=== PATIENT | male | born 1925 | race Caucasian/White ===

== ENCOUNTER 2016-11-06 13:04 | Inpatient (IN) | payer BC, OTHER ==
[~2016-11-06] VITALS: Ht 182.9 cm; Wt 62.0 kg
[~2016-11-06 13:04] MED LIST: ASPI81TA28 PO; ATOR-22 PO; BIMA0.01 OPL; BRIM0.1S OPB; CALC-20 PO; DRON400T PO; WARF2.5T8 PO; WARF5TAB90 PO; ZOLE5INJ IV
[2016-11-06] MEDS ORDERED: OXYCODONE HCL IR 5 MG TAB (IMMEDIATE RELEASE) PO STA (13:48)
--- NOTE | 2016-11-06 15:02 | DIAGNOSTIC IMAGING REPORT ---
LEFT HIP 2 VIEWS HISTORY: Left hip pain. COMPARISON: None. FINDINGS: There is no fracture or dislocation. Soft tissues are unremarkable. Posterior spinal fusion within the lower lumbar spine. Mild degenerative changes within the hips and bilateral SI joints. IMPRESSION: No fractures. Electronically signed by: Sacha Josue M.D. 11/06/2016 3:01 PM Dictated Date/Time: 11/06/2016 2:57 PM
--- NOTE | 2016-11-06 15:55 | DIAGNOSTIC IMAGING REPORT ---
LUMBAR SPINE 5 VIEWS HISTORY: lower back pain COMPARISON: None. FINDINGS: Moderate anterior wedge-shaped compression deformity at T11 and a mild superior endplate compression deformity at T12 which are stable and considered old in comparison to the 2013 chest x-ray. No subluxation. Posterior decompression fusion from L4 through S1 with pedicle screws and rods. The hardware appears intact. 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 No acute fractures within the lumbar spine. IMPRESSION: 1. No acute fracture or subluxation within the lumbar spine. Postoperative changes as described above. 2. Old compression deformity at T11 and T12. Electronically signed by: Sacha Josue M.D. 11/06/2016 3:54 PM Dictated Date/Time: 11/06/2016 3:51 PM
[2016-11-06] MEDS ORDERED: ONDANSETRON INJ 2 MG/ML 2 ML VIAL IV STA (16:09)
[2016-11-06] MEDS ORDERED: MoRPHine SULFATE 4 MG/ML 1 ML CARP\\VIAL IV STA (16:09)
--- NOTE | 2016-11-06 16:09 | EMERGENCY ROOM VISIT NOTE ---
History Report prepared by Donal: Robert Cook Under the Supervision of: Delmer McgheeO. First contact with patient: 13:26 Chief Complaint: HIP PAIN Stated Complaint: LT HIP PAIN History of Present Illness The patient is an 89 year old male who presents to the Emergency Room with complaints of persistent left hip pain that started around 0900 this morning after a fall. He says that he was starting to put a harness on his cat, when he slipped and fell. The patient notes that he hit his left hip on the floor. He did not hit his neck or head on the fall. Per the nursing staff, the patient after the fall walked to the kitchen to have breakfast. The patient called his son a few times, before deciding to come here. The patient said that the pain has gotten gradually worse throughout the day, and is currently a 2 out of 10 in severity. He denies any headache, abdominal pain, back pain, or changes in vision. Source of History: patient, nursing staff Onset: Around 0900 this morning Position: other (left hip) Symptom Intensity: 2/10 pain Timing: other (persistent) Associated Symptoms: No abdominal pain, No back pain, No headache Note: Associated symptoms: Denies changes in vision. Review of Systems See HPI for pertinent positives & negatives. A total of 10 systems reviewed and were otherwise negative. Past Medical & Surgical Medical Problems: (1) ANTICOAGULANTS,LT,CURRENT USE (2) ATRIAL FIBRILLATION (3) CARDIAC PACEMAKER IN SITU (4) Dementia (5) HTN (hypertension) (6) METHICILLIN SUSCEPTIBLE STAPHYLOCOCCUS AUREUS SEPTICEMIA Family History FH: arthritis FH: heart disease Social History Smoking Status: Never Smoker Alcohol Use: occasionally Drug Use: none Marital Status: Housing Status: lives with family Occupation Status: retired Current/Historical Medications Scheduled Aspirin (Aspirin Ec), 81 MG PO DAILY Atorvastatin (Lipitor), 20 MG PO DAILY Bimatoprost (Lumigan), 1 DROP OP DAILY Brimonidine Tartrate (Alphagan P Oph), 1 DROP OP DAILY Calcium Carbonate-Vitamin D (Calcium 600 + D), 1 TABLET PO BID Dronedarone Hcl (Multaq), 400 MG PO BID Warfarin Sod (Jantoven), 2.5 MG PO DIRECTED Warfarin Sodium (Coumadin), 5 MG PO UD Zoledronic Acid (Reclast), 5 MG IV YEARLY Allergies Coded Allergies: Quinolones (Verified Allergy, Unknown, PER MD, 09/10/15) Sulfamethoxazole (Verified Allergy, Unknown, 09/10/15) Tetracyclines (Verified Allergy, Unknown, 09/10/15) Physical Exam Vital Signs Date Time Temp Pulse Resp B/P Pulse Ox O2 Delivery O2 Flow Rate FiO2 11/06/16 14:53 54 20 153/68 95 Room Air 11/06/16 13:26 36.7 57 18 142/72 96 Room Air 11/06/16 13:19 51 Physical Exam GENERAL: sitting up in bed, malnourished, no acute distress, nontoxic EYE EXAM: normal conjunctiva OROPHARYNX: no exudate, no erythema, lips, buccal mucosa, and tongue normal and mucous membranes are moist NECK: supple, no nuchal rigidity, no adenopathy, non-tender LUNGS: Clear to auscultation. Normal chest wall mechanics HEART: no murmurs, S1 normal and S2 normal ABDOMEN: abdomen soft, non-tender, normo-active bowel sounds, no masses, no rebound or guarding. BACK: Back is symmetrical on inspection and there is no deformity, no midline tenderness, no CVA tenderness. PELVIS: Stable to compression anteriorly and posteriorly. Tenderness to palpation on posterior aspect, no bruising. SKIN: no rashes and no bruising UPPER EXTREMITIES: upper extremities are grossly normal. LOWER EXTREMITIES: No pitting edema. NEURO EXAM: Normal sensorium, cranial nerves II-XII grossly intact, no gross weakness of arms. Medical Decision & Procedures ER Provider Diagnostic Interpretation: Radiology results as stated below per my review and the radiologist's interpretation: LEFT HIP 2 VIEWS HISTORY: Left hip pain. COMPARISON: None. FINDINGS: There is no fracture or dislocation. Soft tissues are unremarkable. Posterior spinal fusion within the lower lumbar spine. Mild degenerative changes within the hips and bilateral SI joints. IMPRESSION: No fractures. Electronically signed by: Sacha Josue M.D. 11/06/2016 3:01 PM Dictated Date/Time: 11/06/2016 2:57 PM Laboratory Results Test 11/06/16 15:51 Medications Administered Medications (Trade) Dose Ordered Sig/Lee Route Start Time Stop Time Status Last Admin Dose Admin Oxycodone HCl (Roxicodone Immediate Rel Tab) 5 mg NOW STAT PO 11/06/16 13:48 11/06/16 13:49 DC 11/06/16 13:54 5 MG ED Course ED COURSE: Vital signs were reviewed and showed bradycardic vitals. The patients medical record was reviewed The above diagnostic studies were performed and reviewed. ED treatments and interventions as stated above. 1328: The patient was evaluated in room A11B. A complete history and physical examination was performed. 1348: Ordered Roxicodone Immediate Rel Tab 5 mg PO. 1440: The patient is over at x-ray. 1505: I reevaluated the patient and he is still having pain. We are going to have him get a lumbar spine x-ray. 1540: Attempted to the patient but he was unable to walk due to pain. Sent for CT of the lumbar spine, pelvis and left femur. Labwork was obtained. 1610: Patient was signed out to Dr. Goff. Medical Decision Prior records reviewed and summarized above. Triage Nursing notes reviewed and agree them. Differential diagnosis: Etiologies such as fracture, dislocation, neurovascular compromise, compartment syndrome, soft tissue injury, as well as others were entertained. Patient is an 89-year-old gentleman who lives at home alone by himself who presents the ER for left hip pain following a fall at 9 this morning. He has been ambulating on it since that thepain has been significant worsening. X- rays of the lumbar spine pelvis and left hip show no acute fractures. Attempted to ambulate him following this and was unsuccessful. CBC along with BMP, LFTs and INR was ordered at this time along with a CT of his lumbar spine pelvis and left hip. I had a prolonged discussion with the patient and his son and he'll return at [address] Goff awaiting lab work and CTs. If he is unable to ambulate he will likely need to evaluated by care management for possible placement versus observation. Impression Primary Impression: Contusion, hip Scribe Attestation The scribe's documentation has been prepared under my direction and personally reviewed by me in its entirety. I confirm that the note above accurately reflects all work, treatment, procedures, and medical decision making performed by me. Departure Information Dispostion Home / Self-Care Referrals Kwaku Lara M.D. (PCP) Forms HOME CARE DOCUMENTATION FORM, IMPORTANT VISIT INFORMATION, WORK / SCHOOL INSTRUCTIONS Patient Instructions ED Contusion Hip, My [facility] Additional Instructions Please follow up with your primary care doctor with in the next 24 hours. Any worsening of your symptoms, please return to the ED immediately. This includes fevers greater than 100.4, worsening pain, inability to walk, or any other concerning signs or symptoms from your standpoint. Please take Motrin or Tylenol as needed for pain. Problem Qualifiers Primary Impression: Contusion, hip Encounter type: initial encounter Laterality: left Qualified Codes: S70.02XA - Contusion of left hip, initial encounter
--- NOTE | 2016-11-06 16:40 | DIAGNOSTIC IMAGING REPORT ---
LUMBAR SPINE CT, PELVIS CT, LEFT FEMUR CT CT DOSE: 2160.76 mGy.cm HISTORY: lower back pain sp fall TECHNIQUE: Multiaxial CT images of the lumbar spine, pelvis, left femur were performed and reformatted in the sagittal and coronal plane without the use of contrast. COMPARISON: Lumbar spine, pelvis, left hip 11/06/2016. FINDINGS: Old mild superior endplate compression fracture at T12. L4-S1 posterior decompression and fusion with pedicle screws and rods. The hardware appears intact. There is 4 mm of anterolisthesis of L4 on L5, likely chronic. The L4-L5 vertebral bodies are partially fused. Moderate to severe disc space narrowing at L3-L4. Severe disc space narrowing at L1-L2 and L2-L3. Severe bilateral neural foraminal narrowing at L3-L4. Moderate bilateral neural foraminal narrowing at L4-L5. There is also mild to moderate bilateral neural foraminal narrowing at L2-L3 and severe bilateral neural foraminal narrowing at L1-L2. Mild S-shaped scoliosis of the thoracolumbar spine. Mild central canal narrowing at L1-L2 and L2-L3. No acute fractures within the lumbar spine. The sacrum appears intact. No fracture or dislocation within the right hip. Nondisplaced fractures involving the left inferior pubic ramus and medial aspect of the left pubic bones. There are also nondisplaced fractures involving the lateral aspect of the left superior pubic ramus and extending into the anterior column of the left acetabulum. This also extends to the posterior column of the left acetabulum. Thickening and increased density within the left internal and external obturator muscles. These are consistent with intramuscular hematomas. There is also a hematoma along the medial aspect of the left acetabulum which measures 2.6 cm in thickness. Colonic diverticulosis. The prostate gland is enlarged. No acute fracture or dislocation within the left femur. IMPRESSION: 1. No acute fractures within the lumbar spine. 2. Postoperative and degenerative changes within the lumbar spine as described above. 3. Nondisplaced fractures within the left acetabulum and left pubic bones. 4. No acute fractures within the left femur. 5. Small intramuscular hematomas within the left pelvis and a small pelvic hematoma medial to the left acetabulum. Electronically signed by: Sacha Josue M.D. 11/06/2016 4:38 PM Dictated Date/Time: 11/06/2016 4:24 PM
[2016-11-06 16:56] LABS: COMPLETE YES; EOS % 0.1 %; HEMATOCRIT 43.6 % (42-52); IG% 0.2 %; LYMPH ABS # 0.55 K/uL (1.2-3.4); MEAN CELL VOLUME 92.8 fL (80-100); MEAN CORPUSCULAR HEMOGLOBIN 32.6 pg (25-34); MEAN CORPUSCULAR HGB CONC 35.1 g/dl (32-36); MEAN PLATELET VOLUME 10.8 fL (7.4-10.4); NEUT % 83.7 %; PLATELET COUNT 165 K/uL (130-400); WHITE BLOOD COUNT 9.22 K/uL (4.8-10.8)
[2016-11-06 17:11] LABS: BUN/CREATININE RATIO 17.4 (10-20); CALCIUM 9.1 mg/dl (8.5-10.1); CREATININE 1.4 mg/dl (0.60-1.40); POTASSIUM 3.8 mmol/L (3.5-5.1)
[2016-11-06 17:14] LABS: PROTHROMBIN TIME (PATIENT) 40.4 SECONDS (9.0-12.0)
[2016-11-06 17:18] LABS: INR 3.6 (0.9-1.1)
--- NOTE | 2016-11-06 17:19 | EMERGENCY ROOM VISIT NOTE ---
ED Visit Note First contact with patient: 17:05 This is a 89-year-old male. History physical verified by me. Patient is awaiting CAT scan results. Patient has a acetabular fracture that is nondisplaced and in addition also has a pubic rami fracture. I did discuss the case with Dr. Seymour who asked that the patient be made nonweightbearing. He also stated that the patient could be kept here. Because of this patient's multiple comorbidities I will consult [facility]. Patient and family were in agreement with the treatment plan. Problem List Medical Problems: (1) ANTICOAGULANTS,LT,CURRENT USE Status: Chronic (2) CARDIAC PACEMAKER IN SITU Status: Resolved (3) Dementia Status: Chronic (4) HTN (hypertension) Status: Chronic (5) METHICILLIN SUSCEPTIBLE STAPHYLOCOCCUS AUREUS SEPTICEMIA Status: Resolved Current/Historical Medications Scheduled Aspirin (Aspirin Ec), 81 MG PO DAILY Atorvastatin (Lipitor), 20 MG PO DAILY Bimatoprost (Lumigan), 1 DROP OP DAILY Brimonidine Tartrate (Alphagan P Oph), 1 DROP OP DAILY Calcium Carbonate-Vitamin D (Calcium 600 + D), 1 TABLET PO BID Dronedarone Hcl (Multaq), 400 MG PO BID Warfarin Sod (Jantoven), 2.5 MG PO DIRECTED Warfarin Sodium (Coumadin), 5 MG PO UD Zoledronic Acid (Reclast), 5 MG IV YEARLY Allergies Coded Allergies: Quinolones (Verified Allergy, Unknown, PER MD, 09/10/15) Sulfamethoxazole (Verified Allergy, Unknown, 09/10/15) Tetracyclines (Verified Allergy, Unknown, 09/10/15) Vital Signs Date Time Temp Pulse Resp B/P Pulse Ox O2 Delivery O2 Flow Rate FiO2 11/06/16 17:00 61 16 146/76 96 Room Air 11/06/16 14:53 54 20 153/68 95 Room Air 11/06/16 13:26 36.7 57 18 142/72 96 Room Air 11/06/16 13:19 51 Laboratory Results 11/06/16 16:45 Red Blood Count 4.70, Mean Corpuscular Volume 92.8, Mean Corpuscular Hemoglobin 32.6, Mean Corpuscular Hemoglobin Concent 35.1, Mean Platelet Volume 10.8, Neutrophils (%) (Auto) 83.7, Lymphocytes (%) (Auto) 6.0, Monocytes (%) (Auto) 10.0, Eosinophils (%) (Auto) 0.1, Basophils (%) (Auto) 0.0, Neutrophils # (Auto ) 7.72, Lymphocytes # (Auto) 0.55, Monocytes # (Auto) 0.92, Eosinophils # (Auto ) 0.01, Basophils # (Auto) 0.00 11/06/16 16:45 Test 11/06/16 16:45 White Blood Count 9.22 K/uL (4.8-10.8) Red Blood Count 4.70 M/uL (4.7-6.1) Hemoglobin 15.3 g/dL (14.0-18.0) Hematocrit 43.6 % (42-52) Mean Corpuscular Volume 92.8 fL (80-100) Mean Corpuscular Hemoglobin 32.6 pg (25-34) Mean Corpuscular Hemoglobin Concent 35.1 g/dl (32-36) Platelet Count 165 K/uL (130-400) Mean Platelet Volume 10.8 fL (7.4-10.4) Neutrophils (%) (Auto) 83.7 % Lymphocytes (%) (Auto) 6.0 % Monocytes (%) (Auto) 10.0 % Eosinophils (%) (Auto) 0.1 % Basophils (%) (Auto) 0.0 % Neutrophils # (Auto) 7.72 K/uL (1.4-6.5) Lymphocytes # (Auto) 0.55 K/uL (1.2-3.4) Monocytes # (Auto) 0.92 K/uL (0.11-0.59) Eosinophils # (Auto) 0.01 K/uL (0-0.5) Basophils # (Auto) 0.00 K/uL (0-0.2) RDW Standard Deviation 45.1 fL (36.4-46.3) RDW Coefficient of Variation 13.3 % (11.5-14.5) Immature Granulocyte % (Auto) 0.2 % Immature Granulocyte # (Auto) 0.02 K/uL (0.00-0.02) Anion Gap 8.0 mmol/L (3-11) Est Creatinine Clear Calc Drug Dose 31.4 ml/min Estimated GFR () 51.3 Estimated GFR (Non- 44.2 BUN/Creatinine Ratio 17.4 (10-20) Calcium Level 9.1 mg/dl (8.5-10.1) Total Bilirubin 1.3 mg/dl (0.2-1) Direct Bilirubin 0.3 mg/dl (0-0.2) Aspartate Amino Transf (AST/SGOT) 24 U/L (15-37) Alanine Aminotransferase (ALT/SGPT) 33 U/L (12-78) Alkaline Phosphatase 83 U/L (45-117) Total Protein 7.8 gm/dl (6.4-8.2) Albumin 4.0 gm/dl (3.4-5.0) Medications Administered Medications (Trade) Dose Ordered Sig/Lee Route Start Time Stop Time Status Last Admin Dose Admin Oxycodone HCl (Roxicodone Immediate Rel Tab) 5 mg NOW STAT PO 11/06/16 13:48 11/06/16 13:49 DC 11/06/16 13:54 5 MG Morphine Sulfate (MoRPHine SULFATE INJ) 4 mg NOW STAT IV 11/06/16 16:09 11/06/16 16:10 DC 11/06/16 17:06 4 MG Ondansetron HCl (Zofran Inj) 4 mg NOW STAT IV 11/06/16 16:09 11/06/16 16:10 DC 11/06/16 17:06 4 MG Departure Information Impression Primary Impression: Contusion, hip Dispostion Home / Self-Care Condition GOOD Referrals Kwaku Lara M.D. Forms WORK / SCHOOL INSTRUCTIONS, HOME CARE DOCUMENTATION FORM, IMPORTANT VISIT INFORMATION Patient Instructions [facility], ED Contusion Hip Additional Instructions Please follow up with your primary care doctor with in the next 24 hours. Any worsening of your symptoms, please return to the ED immediately. This includes fevers greater than 100.4, worsening pain, inability to walk, or any other concerning signs or symptoms from your standpoint. Please take Motrin or Tylenol as needed for pain.
[2016-11-06] MEDS ORDERED: ACETAMINOPHEN 325 MG TAB PO PRN (17:45)
[2016-11-06] MEDS ORDERED: POLYETHYLENE (MIRALAX) 17 GM PACK PO PRN (17:45)
[2016-11-06] MEDS ORDERED: OXYCODONE HCL IR 5 MG TAB (IMMEDIATE RELEASE) PO PRN (17:45)
[2016-11-06] MEDS ORDERED: NALOXONE HCL 0.4 MG/1 ML VIAL/CARP IV PRN (17:45)
[2016-11-06] MEDS ORDERED: BISACODYL 10 MG SUPP PR PRN (17:45)
[2016-11-06 18:25] VITALS: O2SAT 96; Ht 182.9 cm; Wt 62.0 kg
[2016-11-06 18:45] VITALS: BP 158/74; PULSE 65; TEMP 37.3; O2SAT 93
[2016-11-06] MEDS ORDERED: PNEUMOCOCCAL ADMINISTRATION CHARGE ONE (19:00)
[2016-11-06] MEDS ORDERED: PNEUMOCOCCAL POLYSACCHARIDES 25 MCG/0.5 ML VIAL/SYR IM. ONE (19:00)
--- NOTE | 2016-11-06 19:03 | History and Physical ---
History & Physical Date & Time of Service: November 06, 2016 at 18:40 Chief Complaint: Lt Hip Pain Primary Care Physician: Edy Cabrera MD History of Present Illness Source: patient, family, clinic records 89 yo M with afib on coumadin presents after a fall at home with persistent pain with ambulation as the day went on. He fell after trying to put a harness of some type on his cat this morning. He denies falls in the past. He reports otherwise feeling well. He lives alone in a townhouse and states that he is usually very active. He walks up and down stairs in his townhouse without any issues. He denies any chest pain, shortness of breath or other issues at time or in the recent past. I spoke with his son who states that his dad has not been complaining of anything recently. He reports seeing him every other day on average and does help him with his pills. He does report some issues with memory loss and repeating things that may have been already said. During my interview with the patient his story went off track many times onto tangents, but he was easily reoriented. He did report some pain in his L hip which he initially attributed to the fall this morning, however, a short time later he couldn't remember why he was here and thought his pain was related to chronic back pain. His son corroborates difficulties specifically with short-term memory. The patient reports the fall was "like a sit down" and he didn't remember hitting anything very hard that would "deserve this much attention." Meds were reviewed with his son. Past Medical/Surgical History Medical Problems: (1) ANTICOAGULANTS,LT,CURRENT USE Status: Chronic (2) Atrial fibrillation Status: Chronic (3) CAD (coronary artery disease) Status: Chronic (4) CARDIAC PACEMAKER IN SITU Status: Resolved (5) Dementia Status: Chronic (6) H/O osteoporotic pathological fracture Permanent Comment: prior vertebral body fracture Status: Chronic (7) HTN (hypertension) Status: Chronic (8) Lumbar spinal stenosis Status: Chronic (9) METHICILLIN SUSCEPTIBLE STAPHYLOCOCCUS AUREUS SEPTICEMIA Status: Resolved (10) BARB (obstructive sleep apnea) Permanent Comment: does not use CPAP at home, although was recommended Status: Chronic (11) Osteoporosis Status: Chronic (12) SSS (sick sinus syndrome) Status: Chronic Family History FH: arthritis FH: heart disease Social History Smoking Status: Never Smoker Smokeless Tobacco Use: No Alcohol Use: socially Drug Use: none Marital Status: Housing status: lives alone Occupational Status: retired Immunizations History of Influenza Vaccine: Yes Influenza Vaccine Date: Mar 04, 2016 History of Tetanus Vaccine?: Yes Tetanus Immunization Date: Mar 18, 2006 History of Pneumococcal: Yes Pneumococcal Date: Aug 28, 2014 History of Hepatitis B Vaccine: No Multi-Drug Resistant Organisms History of MDRO: No Allergies Coded Allergies: Quinolones (Verified Allergy, Unknown, PER MD, 09/10/15) Sulfamethoxazole (Verified Allergy, Unknown, 09/10/15) Tetracyclines (Verified Allergy, Unknown, 09/10/15) Home Medications Scheduled Aspirin (Aspirin Ec), 81 MG PO DAILY Atorvastatin (Lipitor), 20 MG PO DAILY Bimatoprost (Lumigan), 1 DROP OPL DAILY Brimonidine Tartrate (Alphagan P Oph), 1 DROP OPB HS Calcium Carbonate-Vitamin D (Calcium 600 + D), 1 TABLET PO BID Dronedarone Hcl (Multaq), 400 MG PO BID Warfarin Sod (Jantoven), 2.5 MG PO DIRECTED Warfarin Sodium (Coumadin), 5 MG PO UD Zoledronic Acid (Reclast), 5 MG IV YEARLY Review of Systems Constitutional: No chills, No fever Eyes: No worsening of vision ENT: No trouble swallowing Respiratory: No cough, No dyspnea on exertion, No shortness of breath Cardiovascular: No chest pain Abdomen: No constipation, No diarrhea, No nausea, No pain, No vomiting Musculoskeletal: No problem reported Neurologic: + memory loss, No balance problems Psychiatric: No insomnia Hematologic / Lymphatic: No abnormal bleeding/bruising Integumentary: No bleeding, No new/changing skin lesions, No rash Allergic / Immunologic: No food allergies Physical Exam Vital Signs Date Time Temp Pulse Resp B/P Pulse Ox O2 Delivery O2 Flow Rate FiO2 11/06/16 18:00 67 16 154/70 96 Room Air 11/06/16 17:46 68 11/06/16 17:00 61 16 146/76 96 Room Air 11/06/16 14:53 54 20 153/68 95 Room Air 11/06/16 13:26 36.7 57 18 142/72 96 Room Air 11/06/16 13:19 51 GEN: thin, elderly and frail, in no acute distress, alert and appropriate HEENT: NC/AT, PERRL, normal sclerae, opacity to lens of L eye noted, normal conjunctivae CARDIO: reg rate, S1/2 heard without m/g/r LUNGS: CTA bilaterally, no crackles, rales or wheezes, good diaphragmatic excursion ABD: soft, non-tender, non-distended, no rebound or guarding, +BS EXTREMITY: RP and DP palpable 2+ bilat, no LE swelling or edema, extremities are warm and well-perfused, moves legs easily NEURO: CN 2-12 grossly intact, sensation intact throughout, limited exam 2/2 pain and recent fracture MUSC: 5/5 strength throughout, no focal deficits but limited exam 2/2 pain and recent fracture. SKIN: warm and dry, no bruising or abrasions noted to L hip area. Diagnostics Laboratory Results Results Past 24 Hours Test 11/06/16 16:45 Range/Units White Blood Count 9.22 4.8-10.8 K/uL Red Blood Count 4.70 4.7-6.1 M/uL Hemoglobin 15.3 14.0-18.0 g/dL Hematocrit 43.6 42-52 % Mean Corpuscular Volume 92.8 80-100 fL Mean Corpuscular Hemoglobin 32.6 25-34 pg Mean Corpuscular Hemoglobin Concent 35.1 32-36 g/dl Platelet Count 165 130-400 K/uL Mean Platelet Volume 10.8 7.4-10.4 fL Neutrophils (%) (Auto) 83.7 % Lymphocytes (%) (Auto) 6.0 % Monocytes (%) (Auto) 10.0 % Eosinophils (%) (Auto) 0.1 % Basophils (%) (Auto) 0.0 % Neutrophils # (Auto) 7.72 1.4-6.5 K/uL Lymphocytes # (Auto) 0.55 1.2-3.4 K/uL Monocytes # (Auto) 0.92 0.11-0.59 K/uL Eosinophils # (Auto) 0.01 0-0.5 K/uL Basophils # (Auto) 0.00 0-0.2 K/uL RDW Standard Deviation 45.1 36.4-46.3 fL RDW Coefficient of Variation 13.3 11.5-14.5 % Immature Granulocyte % (Auto) 0.2 % Immature Granulocyte # (Auto) 0.02 0.00-0.02 K/uL Prothrombin Time 40.4 9.0-12.0 SECONDS Prothromb Time International Ratio 3.6 0.9-1.1 Sodium Level 140 136-145 mmol/L Potassium Level 3.8 3.5-5.1 mmol/L Chloride Level 105 98-107 mmol/L Carbon Dioxide Level 27 21-32 mmol/L Anion Gap 8.0 3-11 mmol/L Blood Urea Nitrogen 24 7-18 mg/dl Creatinine 1.40 0.60-1.40 mg/dl Est Creatinine Clear Calc Drug Dose 31.4 ml/min Estimated GFR () 51.3 Estimated GFR (Non- 44.2 BUN/Creatinine Ratio 17.4 10-20 Random Glucose 95 70-99 mg/dl Calcium Level 9.1 8.5-10.1 mg/dl Total Bilirubin 1.3 0.2-1 mg/dl Direct Bilirubin 0.3 0-0.2 mg/dl Aspartate Amino Transf (AST/SGOT) 24 15-37 U/L Alanine Aminotransferase (ALT/SGPT) 33 12-78 U/L Alkaline Phosphatase 83 45-117 U/L Total Protein 7.8 6.4-8.2 gm/dl Albumin 4.0 3.4-5.0 gm/dl Diagnostic Radiology LUMBAR SPINE CT, PELVIS CT, LEFT FEMUR CT CT DOSE: 2160.76 mGy.cm HISTORY: lower back pain sp fall TECHNIQUE: Multiaxial CT images of the lumbar spine, pelvis, left femur were performed and reformatted in the sagittal and coronal plane without the use of contrast. COMPARISON: Lumbar spine, pelvis, left hip 11/06/2016. FINDINGS: Old mild superior endplate compression fracture at T12. L4-S1 posterior decompression and fusion with pedicle screws and rods. The hardware appears intact. There is 4 mm of anterolisthesis of L4 on L5, likely chronic. The L4-L5 vertebral bodies are partially fused. Moderate to severe disc space narrowing at L3-L4. Severe disc space narrowing at L1-L2 and L2-L3. Severe bilateral neural foraminal narrowing at L3-L4. Moderate bilateral neural foraminal narrowing at L4-L5. There is also mild to moderate bilateral neural foraminal narrowing at L2-L3 and severe bilateral neural foraminal narrowing at L1-L2. Mild S-shaped scoliosis of the thoracolumbar spine. Mild central canal narrowing at L1-L2 and L2-L3. No acute fractures within the lumbar spine. The sacrum appears intact. No fracture or dislocation within the right hip. Nondisplaced fractures involving the left inferior pubic ramus and medial aspect of the left pubic bones. There are also nondisplaced fractures involving the lateral aspect of the left superior pubic ramus and extending into the anterior column of the left acetabulum. This also extends to the posterior column of the left acetabulum. Thickening and increased density within the left internal and external obturator muscles. These are consistent with intramuscular hematomas. There is also a hematoma along the medial aspect of the left acetabulum which measures 2.6 cm in thickness. Colonic diverticulosis. The prostate gland is enlarged. No acute fracture or dislocation within the left femur. IMPRESSION: 1. No acute fractures within the lumbar spine. 2. Postoperative and degenerative changes within the lumbar spine as described above. 3. Nondisplaced fractures within the left acetabulum and left pubic bones. 4. No acute fractures within the left femur. 5. Small intramuscular hematomas within the left pelvis and a small pelvic hematoma medial to the left acetabulum. LUMBAR SPINE 5 VIEWS HISTORY: lower back pain COMPARISON: None. FINDINGS: Moderate anterior wedge-shaped compression deformity at T11 and a mild superior endplate compression deformity at T12 which are stable and considered old in comparison to the 2013 chest x-ray. No subluxation. Posterior decompression fusion from L4 through S1 with pedicle screws and rods. The hardware appears intact. 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 No acute fractures within the lumbar spine. IMPRESSION: 1. No acute fracture or subluxation within the lumbar spine. Postoperative changes as described above. 2. Old compression deformity at T11 and T12. LEFT HIP 2 VIEWS HISTORY: Left hip pain. COMPARISON: None. FINDINGS: There is no fracture or dislocation. Soft tissues are unremarkable. Posterior spinal fusion within the lower lumbar spine. Mild degenerative changes within the hips and bilateral SI joints. IMPRESSION: No fractures. EKG EKG pending Impression Assessment and Plan 89 yo osteoporotic M with traumatic fall from standing height and subsequent L acetabular and pubic ramus fracture. 1. Mechanical fall-from history, there does not seem to be any other factors at play leading to the fall. He reports being dizzy with bending forward and fell from there into a sitting position on the floor. He denies severe pain at this time but will schedule Tylenol as he has some dementia and short-term memory loss. Not controlling his pain better may lead to hospital delirium-- his son is aware of this. Ortho was consulted and per son does not plan to proceed with surgery, however, at this time I have no formal word from Ortho on that. Will hold warfarin and ASA and keep NPO after midnight in case of surgery in am. Of note, INR will likely need to be reversed if this is the case. Dr. Freeman was consulted for recs. For now, will keep NWB and encourage IS and turn q2h to prevent pressure sores. PT/OT consult placed. 2. Osteoporosis-Reclast infusions yearly with annual dose coming up. Appreciate Ortho weighing in on instructions for this in setting of fracture. 3. CAD s/p stent-denies any symptoms of chest pain or shortness of breath. Appears to be very active at baseline as he accomplishes his ADLs and IADLs and is able to move up and down the stairs in his townhouse. 4. Atrial fibrillation-supratherapeutic on coumadin with rate controlled at baseline. He has a contraindication to beta blockers and does have a pacemaker in place. Cont dronedarone per outpatient regimen DVT prophy: SCDs in setting of poss surgery, coumadin is supratherapeutic and was held on admission. Full Code Dispo-to floor pending formal Ortho evaluation. PT/OT ordered, also. Pt lives alone. Appreciate CM following. Heart Healthy diet DO Kip Hernandez Hospitalist Level of Care Med/Surg Resuscitation Status FULL RESUSCITATION VTE Prophylaxis VTE Risk Assessment Done? Y/N: Yes Risk Level: Moderate Given or contraindicated: Warfarin (Coumadin), SCD's Social Service Consult >80 yr.& Lives Alone
--- NOTE | 2016-11-06 20:16 | DIAGNOSTIC IMAGING REPORT ---
CHEST ONE VIEW PORTABLE HISTORY: pre-op admission COMPARISON: Chest 09/10/2015. FINDINGS: Emphysema. The heart is normal in size. No pleural effusions. No pneumothorax. The right lung is clear. A few linear density left lung base favor subsegmental atelectasis or scarring. IMPRESSION: 1. Emphysema. 2. A few linear densities at the left lung base favor subsegmental atelectasis or scarring. Otherwise, no acute process. Electronically signed by: Sacha Josue M.D. 11/06/2016 8:14 PM Dictated Date/Time: 11/06/2016 8:13 PM
[2016-11-06] MEDS: DOCUSATE SODIUM/SENNA 50/8.6MG TAB PO SCH (22:25)
[2016-11-06] MEDS: ACETAMINOPHEN 500 MG TAB PO SCH (22:25)
[2016-11-06 23:05] VITALS: BP 120/54; PULSE 77; TEMP 37.3; O2SAT 94
[2016-11-07] MEDS: ACETAMINOPHEN 500 MG TAB PO SCH ×3 (06:10→22:10)
[2016-11-07 07:26] LABS: MEAN CORPUSCULAR HEMOGLOBIN 31.7 pg (25-34); MEAN CORPUSCULAR HGB CONC 34.1 g/dl (32-36); MEAN PLATELET VOLUME 10.8 fL (7.4-10.4); PLATELET COUNT 153 K/uL (130-400); RED BLOOD COUNT 4.41 M/uL (4.7-6.1); WHITE BLOOD COUNT 6.71 K/uL (4.8-10.8)
[2016-11-07 07:40] VITALS: BP 89/56; PULSE 85; TEMP 36.5; O2SAT 95
[2016-11-07 07:40] LABS: INR 3.4 (0.9-1.1); PROTHROMBIN TIME (PATIENT) 38.6 SECONDS (9.0-12.0)
[2016-11-07 08:04] LABS: BUN/CREATININE RATIO 18.5 (10-20); CALCIUM 8.5 mg/dl (8.5-10.1); CREATININE 1.5 mg/dl (0.60-1.40)
[2016-11-07 09:42] VITALS: BP 83/52
[2016-11-07] MEDS: SODIUM CHLORIDE 0.9% 1000ML 1,000 ML IV SCH ×2 (12:43→22:10)
--- NOTE | 2016-11-07 13:42 | Medical Consult ---
Consultation Note Date of Service November 07, 2016. Consultation Note I have been asked to provide consultation for reversal of anticoagulation in this 89 year old man with a history of atrial fibrillation and pacemaker insertion. He was in his usual state of health until he experienced a fall at home. Imaging studies performed reveal the presence of nondisplaced fractures within the left acetabulum and left pubic bones and small intramuscular hematomas within the left pelvis and a small pelvic hematoma medial to the left acetabulum. It is unclear as of now as to whether he will require surgical intervention, what type and when. His INR yesterday was 3.6 and this morning it is 3.4 (trending downward). Regardless of the plan, coumadin should be held at least today as he is mildly supratherapeutic. Should surgical intervention be warranted, the favored means of reversing anticoagulation would be IV vitamin K, 5-10 mg. This should result in an INR suitable for surgery within about 6-8 hours. In the event this is insufficient or if reversal needs to be more timely, he would require 1500 units of KCentra, which would reverse the INR immediately, but carries a risk of idiosynchratic thrombosis. Case discussed with Dr. Valle.
--- NOTE | 2016-11-07 15:05 | Progress Note ---
Subjective Date of Service: November 07, 2016. Subjective Pt evaluation today including: conversation w/ patient, physical exam, lab review, review of studies, review of inpatient medication list Saw/examined the patient in room 385 no significant distress - he is laying in bed, HOB elevated, reading a newspaper states his pain is worse at the L hip area; no pain while laying Problem List Medical Problems: (1) Contusion, hip Status: Acute Review of Systems Constitutional: No chills, No fever Respiratory: No shortness of breath Cardiac: No chest pain Abdomen: No diarrhea, No nausea, No pain, No vomiting Musculoskeletal: + joint pain, + see HPI Medications Current Inpatient Medications Medications (Trade) Dose Ordered Sig/Lee Route Start Time Stop Time Status Last Admin Dose Admin Oxycodone HCl (Roxicodone Immediate Rel Tab) 5 mg Q4H PRN PO 11/06/16 17:45 11/20/16 17:44 Naloxone HCl (Narcan Inj) 0.1 mg UD PRN IV 11/06/16 17:45 12/06/16 17:44 Senna/Docusate Sodium (Senokot S Tab) 2 tab HS PO 11/06/16 21:00 12/06/16 20:59 11/06/16 22:25 2 TAB Polyethylene (Miralax Powder Packet) 17 gm DAILY PRN PO 11/06/16 17:45 12/06/16 17:44 Bisacodyl (Dulcolax Supp) 10 mg DAILY PRN ME 11/06/16 17:45 12/06/16 17:44 Acetaminophen 1000 mg 1,000 mg Q8 PO 11/06/16 22:00 12/06/16 21:59 11/07/16 13:37 1,000 MG Sodium Chloride (Nss 1000ml) 1,000 ml @ 100 mls/hr Q10H IV 11/07/16 12:00 12/07/16 11:59 11/07/16 12:43 100 MLS/HR Objective Vital Signs Date Time Temp Pulse Resp B/P Pulse Ox O2 Delivery O2 Flow Rate FiO2 11/07/16 09:42 83/52 11/07/16 08:20 Room Air 11/07/16 07:40 36.5 85 16 89/56 95 Room Air 11/06/16 23:45 Room Air 11/06/16 23:05 37.3 77 16 120/54 94 Room Air 11/06/16 19:00 Room Air 11/06/16 18:45 37.3 65 18 158/74 93 Room Air 11/06/16 18:25 96 Room Air 11/06/16 18:00 67 16 154/70 96 Room Air 11/06/16 17:46 68 11/06/16 17:00 61 16 146/76 96 Room Air 11/06/16 14:53 54 20 153/68 95 Room Air Physical Exam General Appearance: no apparent distress, + cachetic, + thin Respiratory/Chest: lungs clear, normal breath sounds, no respiratory distress, no accessory muscle use Cardiovascular: no edema, no murmur, + irregularly irregular Abdomen: normal bowel sounds, non tender, soft Extremities: + pertinent finding (painful ROM, point tenderness at L hip) Laboratory Results Last 24 Hours Test 11/06/16 16:45 11/07/16 07:12 White Blood Count 9.22 K/uL 6.71 K/uL Red Blood Count 4.70 M/uL 4.41 M/uL Hemoglobin 15.3 g/dL 14.0 g/dL Hematocrit 43.6 % 41.0 % Mean Corpuscular Volume 92.8 fL 93.0 fL Mean Corpuscular Hemoglobin 32.6 pg 31.7 pg Mean Corpuscular Hemoglobin Concent 35.1 g/dl 34.1 g/dl Platelet Count 165 K/uL 153 K/uL Mean Platelet Volume 10.8 fL 10.8 fL Neutrophils (%) (Auto) 83.7 % Lymphocytes (%) (Auto) 6.0 % Monocytes (%) (Auto) 10.0 % Eosinophils (%) (Auto) 0.1 % Basophils (%) (Auto) 0.0 % Neutrophils # (Auto) 7.72 K/uL Lymphocytes # (Auto) 0.55 K/uL Monocytes # (Auto) 0.92 K/uL Eosinophils # (Auto) 0.01 K/uL Basophils # (Auto) 0.00 K/uL RDW Standard Deviation 45.1 fL 45.9 fL RDW Coefficient of Variation 13.3 % 13.4 % Immature Granulocyte % (Auto) 0.2 % Immature Granulocyte # (Auto) 0.02 K/uL Prothrombin Time 40.4 SECONDS 38.6 SECONDS Prothromb Time International Ratio 3.6 3.4 Sodium Level 140 mmol/L 141 mmol/L Potassium Level 3.8 mmol/L 4.0 mmol/L Chloride Level 105 mmol/L 108 mmol/L Carbon Dioxide Level 27 mmol/L 24 mmol/L Anion Gap 8.0 mmol/L 9.0 mmol/L Blood Urea Nitrogen 24 mg/dl 28 mg/dl Creatinine 1.40 mg/dl 1.50 mg/dl Est Creatinine Clear Calc Drug Dose 31.4 ml/min 29.3 ml/min Estimated GFR () 51.3 47.2 Estimated GFR (Non- 44.2 40.7 BUN/Creatinine Ratio 17.4 18.5 Random Glucose 95 mg/dl 83 mg/dl Calcium Level 9.1 mg/dl 8.5 mg/dl Total Bilirubin 1.3 mg/dl Direct Bilirubin 0.3 mg/dl Aspartate Amino Transf (AST/SGOT) 24 U/L Alanine Aminotransferase (ALT/SGPT) 33 U/L Alkaline Phosphatase 83 U/L Total Protein 7.8 gm/dl Albumin 4.0 gm/dl 25-Hydroxy Vitamin D Total 28.9 ng/ml Assessment and Plan This is an 89 year old male with a PMH of CAD s/p stents, A. fib on long-term Coumadin, sick sinus syndrome s/p PPM, osteoporotic vertebral fracture, CKD stage 3, presented secondary to mechanical fall and nondisplaced L acetabular and pelvic bone fractures Nondisplaced L acetabular/pelvic fracture this is likely going to be conservative management only will attempt non-weightbearing status on L as tolerated Percocet PRN for pain will await ortho input prior to therapy, then will order PT/OT lives alone - will need rehab; discharge planning A. Fib on Coumadin currently rate controlled does not tolerate b-blockers as per records continue Multaq INR >3; hold Coumadin will need Vitamin K if surgical intervention planned CAD s/p stents can restart aspirin, statin if no surgical intervention planned Hx. of Osteoporosis Reclast yearly can increase fracture risk, for now, will continue Sick sinus syndrome s/p PPM CKD stage 3 creatinine up to 1.5 will add some fluids avoiding nephrotoxic agents when possible DVT ppx SCDs FULL CODE
[2016-11-07 16:00] VITALS: BP 87/61; PULSE 103; TEMP 36.4; O2SAT 95
--- NOTE | 2016-11-07 19:23 | ORTHOPEDIC CONSULTATION ---
DATE OF CONSULTATION: 11/07/2016 CHIEF COMPLAINT: Left hip pain. HISTORY OF PRESENT ILLNESS: This patient is a mildly confused 89-year-old man who was admitted on the day prior apparently after falling while attempting to take care of his cat. He describes the fall as a sit down type fall, he lost his balance. The patient has discomfort with walking and was admitted for further workup. An orthopedic consult was placed because of the CT scan showing what appears to be a nondisplaced central acetabular fracture and pubic ramus fracture on the left. For medical and surgical history, see admission history and physical, it is extensive. MEDICATIONS: See admitting history and physical. Of note, patient is on low dose Coumadin for a history of pacemaker and chronic atrial fibrillation. ORTHOPEDIC EXAMINATION: The patient is thin and frail in appearance. He is sitting at this time and does not appear to be in any acute distress. Orthopedic examination shows his pelvis to be stable to compression. There is no visible deformity or bruising. Skin is intact. Range of motion of the left hip reproduces some groin and hip discomfort. Otherwise, negative findings. Neurological and vascular functions are intact. IMAGING DATA: Radiographs including pelvis and CT scan were reviewed. These are consistent with a nondisplaced fracture of the left pubic ramus which appears to be a central acetabular fracture with severe osteopenia. IMPRESSION: Left nondisplaced acetabular fracture. PLAN: I do not feel that this patient will need surgical nor is he a good surgical candidate. It is okay to continue his Coumadin. We would recommend nonoperative treatment, ideal would be non-weightbearing for a period of a few weeks and then to advance to toe touch weightbearing. With his mild confusion, this may be difficult. The patient lives alone, I believe that he would be best served at an extended care facility during this period of recovery. We will need x-rays q. 2 weeks for the first 4-6 weeks and then q. 6 weeks after that until the fracture is completely healed. Thank you for this consult.
[2016-11-07] MEDS: DOCUSATE SODIUM/SENNA 50/8.6MG TAB PO SCH (22:11)
[2016-11-07 23:20] VITALS: BP 120/74; PULSE 68; TEMP 36.8; O2SAT 95
[2016-11-08 01:05] VITALS: BP 115/72; PULSE 123
[2016-11-08 01:28] VITALS: BP 129/73; PULSE 94
[2016-11-08] MEDS: ACETAMINOPHEN 500 MG TAB PO SCH ×3 (05:29→21:27)
[2016-11-08 07:08] VITALS: BP 119/73; PULSE 85; TEMP 36.4; O2SAT 94
[2016-11-08 07:14] LABS: HEMATOCRIT 38.1 % (42-52); MEAN CORPUSCULAR HEMOGLOBIN 32.4 pg (25-34); MEAN CORPUSCULAR HGB CONC 35.2 g/dl (32-36); MEAN PLATELET VOLUME 10.7 fL (7.4-10.4); PLATELET COUNT 149 K/uL (130-400); RED BLOOD COUNT 4.14 M/uL (4.7-6.1); WHITE BLOOD COUNT 7.62 K/uL (4.8-10.8)
[2016-11-08] MEDS: SODIUM CHLORIDE 0.9% 1000ML 1,000 ML IV SCH ×2 (07:30→16:54)
[2016-11-08 07:36] LABS: INR 2.7 (0.9-1.1); PROTHROMBIN TIME (PATIENT) 29.7 SECONDS (9.0-12.0)
[2016-11-08 07:45] LABS: BUN/CREATININE RATIO 20.4 (10-20); CALCIUM 8.1 mg/dl (8.5-10.1); CREATININE 1.4 mg/dl (0.60-1.40)
[2016-11-08 15:13] VITALS: BP 161/93; PULSE 107; TEMP 36.3; O2SAT 97
[2016-11-08] MEDS ORDERED: WARFARIN SOD 2.5 MG TAB PO SCH (16:00)
[2016-11-08] MEDS: DOCUSATE SODIUM/SENNA 50/8.6MG TAB PO SCH (21:27)
[2016-11-08 23:15] VITALS: BP 158/84; PULSE 71; TEMP 36.7; O2SAT 96
--- NOTE | 2016-11-09 00:09 | Progress Note ---
Medicine Progress Note Date & Time of Visit: November 08, 2016 at 1500. Subjective This is an 89 year old male s/p mechanical fall with L acetabular and pelvic bone fractures -pain controlled tolerating PO non-weight bearing, up in chair today no CP, SOB or other symptoms at this time Objective Last 8 Hrs Date Time Temp Pulse Resp B/P Pulse Ox O2 Delivery O2 Flow Rate FiO2 11/08/16 15:13 36.3 107 17 161/93 97 Room Air Physical Exam: GEN: thin, elderly and frail, in no acute distress, alert and appropriate HEENT: NC/AT, normal sclerae CARDIO: reg rate, S1/2 heard without m/g/r LUNGS: CTA bilaterally, no crackles, rales or wheezes, good diaphragmatic excursion ABD: soft, non-tender, non-distended, no rebound or guarding, +BS EXTREMITY: RP and DP palpable 2+ bilat, no LE swelling or edema, extremities are warm and well-perfused, moves legs easily N/M: left leg NVI, no gross focal deficits. SKIN: warm and dry, Laboratory Results: 11/08/16 06:35 11/08/16 06:35 Test 11/06/16 16:45 11/07/16 07:12 11/08/16 06:35 Immature Granulocyte % (Auto) 0.2 % White Blood Count 9.22 K/uL (4.8-10.8) Red Blood Count 4.70 M/uL (4.7-6.1) 4.14 M/uL (4.7-6.1) Hemoglobin 15.3 g/dL (14.0-18.0) Hematocrit 43.6 % (42-52) Mean Corpuscular Volume 92.8 fL (80-100) 92.0 fL (80-100) Mean Corpuscular Hemoglobin 32.6 pg (25-34) 32.4 pg (25-34) Mean Corpuscular Hemoglobin Concent 35.1 g/dl (32-36) 35.2 g/dl (32-36) Platelet Count 165 K/uL (130-400) Mean Platelet Volume 10.8 fL (7.4-10.4) 10.7 fL (7.4-10.4) Neutrophils (%) (Auto) 83.7 % Lymphocytes (%) (Auto) 6.0 % Monocytes (%) (Auto) 10.0 % Eosinophils (%) (Auto) 0.1 % Basophils (%) (Auto) 0.0 % Neutrophils # (Auto) 7.72 K/uL (1.4-6.5) Lymphocytes # (Auto) 0.55 K/uL (1.2-3.4) Monocytes # (Auto) 0.92 K/uL (0.11-0.59) Eosinophils # (Auto) 0.01 K/uL (0-0.5) Basophils # (Auto) 0.00 K/uL (0-0.2) Immature Granulocyte # (Auto) 0.02 K/uL (0.00-0.02) Total Bilirubin 1.3 mg/dl (0.2-1) Direct Bilirubin 0.3 mg/dl (0-0.2) Aspartate Amino Transf (AST/SGOT) 24 U/L (15-37) Alanine Aminotransferase (ALT/SGPT) 33 U/L (12-78) Alkaline Phosphatase 83 U/L (45-117) Total Protein 7.8 gm/dl (6.4-8.2) Albumin 4.0 gm/dl (3.4-5.0) 25-Hydroxy Vitamin D Total 28.9 ng/ml (30-100) RDW Standard Deviation 44.4 fL (36.4-46.3) RDW Coefficient of Variation 13.3 % (11.5-14.5) Prothrombin Time 29.7 SECONDS (9.0-12.0) Prothromb Time International Ratio 2.7 (0.9-1.1) Anion Gap 8.0 mmol/L (3-11) Est Creatinine Clear Calc Drug Dose 31.4 ml/min Estimated GFR () 51.3 Estimated GFR (Non- 44.2 BUN/Creatinine Ratio 20.4 (10-20) Calcium Level 8.1 mg/dl (8.5-10.1) Date/Time Source Procedure Growth Status 11/06/16 00:00 Nasal MRSA DNA Surveillance Screen - Final Specimen Negative for MRSA by DNA Probe Complete Last 24 Hours Test 11/08/16 06:35 White Blood Count 7.62 K/uL Red Blood Count 4.14 M/uL Hemoglobin 13.4 g/dL Hematocrit 38.1 % Mean Corpuscular Volume 92.0 fL Mean Corpuscular Hemoglobin 32.4 pg Mean Corpuscular Hemoglobin Concent 35.2 g/dl RDW Standard Deviation 44.4 fL RDW Coefficient of Variation 13.3 % Platelet Count 149 K/uL Mean Platelet Volume 10.7 fL Prothrombin Time 29.7 SECONDS Prothromb Time International Ratio 2.7 Sodium Level 141 mmol/L Potassium Level 4.0 mmol/L Chloride Level 109 mmol/L Carbon Dioxide Level 24 mmol/L Anion Gap 8.0 mmol/L Blood Urea Nitrogen 29 mg/dl Creatinine 1.40 mg/dl Est Creatinine Clear Calc Drug Dose 31.4 ml/min Estimated GFR () 51.3 Estimated GFR (Non- 44.2 BUN/Creatinine Ratio 20.4 Random Glucose 88 mg/dl Calcium Level 8.1 mg/dl Assessment & Plan This is an 89 year old male with a PMH of CAD s/p stents, A. fib on long-term Coumadin, sick sinus syndrome s/p PPM, osteoporotic vertebral fracture, CKD stage 3, presented secondary to mechanical fall and nondisplaced L acetabular and pelvic bone fractures Nondisplaced L acetabular/pelvic fracture: per Ortho, conservative, non- operative management. NWB, Percocet PRN for pain. Lives alone - will need rehab ; discharge planning A. Fib on Coumadin currently rate controlled does not tolerate b-blockers as per records continue Multaq INR 2.7; warfarin restarted, repeat daily INR CAD s/p stents, cont ASA and statin per home regimen Hx. of Osteoporosis Reclast yearly Sick sinus syndrome s/p PPM CKD stage 3-at baseline, avoiding nephrotoxic agents when possible DVT proph: warfarin Dispo-to rehab facility Full Code [facility] Current Inpatient Medications: Current Inpatient Medications Medications (Trade) Dose Ordered Sig/Lee Route Start Time Stop Time Status Last Admin Dose Admin Oxycodone HCl (Roxicodone Immediate Rel Tab) 5 mg Q4H PRN PO 11/06/16 17:45 11/20/16 17:44 Naloxone HCl (Narcan Inj) 0.1 mg UD PRN IV 11/06/16 17:45 12/06/16 17:44 Senna/Docusate Sodium (Senokot S Tab) 2 tab HS PO 11/06/16 21:00 12/06/16 20:59 11/07/16 22:11 2 TAB Polyethylene (Miralax Powder Packet) 17 gm DAILY PRN PO 11/06/16 17:45 12/06/16 17:44 Bisacodyl (Dulcolax Supp) 10 mg DAILY PRN NH 11/06/16 17:45 12/06/16 17:44 Acetaminophen 1000 mg 1,000 mg Q8 PO 11/06/16 22:00 12/06/16 21:59 11/08/16 13:29 1,000 MG Sodium Chloride (Nss 1000ml) 1,000 ml @ 100 mls/hr Q10H IV 11/07/16 12:00 12/07/16 11:59 11/08/16 16:54 100 MLS/HR Warfarin Sodium (Coumadin Tab) 2.5 mg SuTuThSa@1600 PO 11/08/16 16:00 12/08/16 15:59 11/08/16 16:50 2.5 MG Warfarin Sodium (Coumadin Tab) 5 mg MoWeFr@1600 PO 11/09/16 16:00 12/09/16 15:59
[2016-11-09] MEDS: SODIUM CHLORIDE 0.9% 1000ML 1,000 ML IV SCH ×2 (02:37→12:29)
[2016-11-09] MEDS: ACETAMINOPHEN 500 MG TAB PO SCH ×2 (05:44→13:43)
[2016-11-09 07:06] VITALS: BP 159/86; PULSE 64; TEMP 36.3; O2SAT 98
[2016-11-09 07:45] LABS: INR 2.1 (0.9-1.1); PROTHROMBIN TIME (PATIENT) 22.9 SECONDS (9.0-12.0)
[2016-11-09] MEDS ORDERED: ATORVASTATIN 20 MG TAB PO SCH (09:00)
[2016-11-09] MEDS ORDERED: ASPIRIN 81 MG ECTAB PO SCH (09:00)
[2016-11-09] MEDS ORDERED: RXC5 PO (15:32)
--- NOTE | 2016-11-09 15:40 | Discharge Instructions ---
Discharge Instructions Date of Service November 09, 2016. Admission Reason for Admission: Hip Fracture, Left Discharge Discharge Diagnosis / Problem: Left non-displaced acetabular fracture Discharge Goals Goal(s): Decrease discomfort Activity Recommendations Activity Limitations: per Instructions/Follow-up section . Instructions / Follow-Up Instructions / Follow-Up Please continue all medications as directed including coumadin. Orthopedic instructions: Remain non-weight bearing for 2-4 weeks, then advance to toe touch weightbearing. Will need xrays every 2 weeks for the first 4-6 weeks, the every 6 weeks after that until fracture is completely healed. Please contact Dr. Dale Austin's office (Orthopedics) to set up follow-up appointment. I recommend a follow-up with your primary care physician within one week of discharge from the rehab facility as a follow-up from this hospitalization. It was a pleasure taking care of you! Call if you have any questions or problems. You can reach a [facility] hospitalist on duty at [facility] 24 hours a day by calling [phone]. Take care of yourself. Chika Shultz DO [facility] Hospitalist Current Hospital Diet Patient's current hospital diet: AHA Diet (Heart Healthy) Discharge Diet Recommended Diet: AHA Diet (Heart Healthy) Procedures Procedures Performed: None. Pending Studies Studies pending at discharge: no Medical Emergencies . Who to Call and When: Medical Emergencies: If at any time you feel your situation is an emergency, please call 911 immediately. . Non-Emergent Contact Non-Emergency issues call your: Primary Care Provider . . "Provider Documentation" section prepared by Chika Shultz. . VTE Core Measure Inpt VTE Proph given/why not?: Warfarin (Coumadin), SCD's [place] Drug Monitoring Program Search Results: no issues identified (cannot login to database)
--- NOTE | 2016-11-09 15:44 | Discharge Summary ---
Discharge Summary Date of Service November 09, 2016. Discharge Summary Admission Date: November 06, 2016 at 17:43 Discharge Date: November 09, 2016 Discharge Disposition: intermediate facility Principal Diagnosis: L acetabular fracture, nondisplaced Chronic atrial fibrillation on coumadin CAD s/p stents SSS s/p Pacemaker Osteoporotic vertebral compression fracture Osteoporosis-on Reclast infusions CKD III Procedures: None. Vaccinations: None. Consultations: Orthopedics. Pending Studies/Follow-Up: see instructions below. Medication Reconciliation New Medications: Oxycodone HCl (Oxycodone HCl) 5 Mg Tab 5 MG PO Q4H PRN for Pain for 10 Days, #20 TAB Continued Medications: Aspirin (Aspirin Ec) 81 Mg Tab 81 MG PO DAILY Atorvastatin (Lipitor) 20 Mg Tab 20 MG PO DAILY, TAB Bimatoprost (Lumigan) 0.01 % Billie 1 DROP OPL DAILY, #10 Brimonidine Tartrate (Alphagan P Oph) 0.1 % Billie 1 DROP OPB HS Calcium Carbonate-Vitamin D (Calcium 600 + D) 1 Tab Tab 1 TABLET PO BID Dronedarone Hcl (Multaq) 400 Mg Tab 400 MG PO BID Warfarin Sod (Jantoven) 2.5 Mg Tab 2.5 MG PO DIRECTED, TAB TAKE , , MON, MONDAY Warfarin Sodium (Coumadin) 5 Mg Tab 5 MG PO UD, TAB take 5 mg mon, mon, monday Discontinued Medications: Zoledronic Acid (Reclast) 5 Mg/100 Ml Inj 5 MG IV YEARLY Admission Information HPI (per Admitting provider): 89 yo M with afib on coumadin presents after a fall at home with persistent pain with ambulation as the day went on. He fell after trying to put a harness of some type on his cat this morning. He denies falls in the past. He reports otherwise feeling well. He lives alone in a townhouse and states that he is usually very active. He walks up and down stairs in his townhouse without any issues. He denies any chest pain, shortness of breath or other issues at time or in the recent past. I spoke with his son who states that his dad has not been complaining of anything recently. He reports seeing him every other day on average and does help him with his pills. He does report some issues with memory loss and repeating things that may have been already said. During my interview with the patient his story went off track many times onto tangents, but he was easily reoriented. He did report some pain in his L hip which he initially attributed to the fall this morning, however, a short time later he couldn't remember why he was here and thought his pain was related to chronic back pain. His son corroborates difficulties specifically with short-term memory. The patient reports the fall was "like a sit down" and he didn't remember hitting anything very hard that would "deserve this much attention." Meds were reviewed with his son. Physical Exam (per Admitting): GEN: thin, elderly and frail, in no acute distress, alert and appropriate HEENT: NC/AT, PERRL, normal sclerae, opacity to lens of L eye noted, normal conjunctivae CARDIO: reg rate, S1/2 heard without m/g/r LUNGS: CTA bilaterally, no crackles, rales or wheezes, good diaphragmatic excursion ABD: soft, non-tender, non-distended, no rebound or guarding, +BS EXTREMITY: RP and DP palpable 2+ bilat, no LE swelling or edema, extremities are warm and well-perfused, moves legs easily NEURO: CN 2-12 grossly intact, sensation intact throughout, limited exam 2/2 pain and recent fracture MUSC: 5/5 strength throughout, no focal deficits but limited exam 2/2 pain and recent fracture. SKIN: warm and dry, no bruising or abrasions noted to L hip area. Hospital Course This is an 89 year old male with a PMH of CAD s/p stents, A. fib on long-term Coumadin, sick sinus syndrome s/p PPM, osteoporotic vertebral fracture, CKD stage 3, presented secondary to mechanical fall and nondisplaced L acetabular and pelvic bone fractures Nondisplaced L acetabular/pelvic fracture: per Ortho, conservative, non- operative management. NWB, Percocet PRN for pain. Lives alone - will need rehab ; discharge planning A. Fib on Coumadin currently rate controlled does not tolerate b-blockers as per records continue Multaq INR 2.7; warfarin restarted, repeat daily INR CAD s/p stents, cont ASA and statin per home regimen Hx. of Osteoporosis Reclast yearly Sick sinus syndrome s/p PPM CKD stage 3-at baseline, avoiding nephrotoxic agents when possible On day of discharge he was afebrile and hemodynamically stable. Pain was controlled. Plan per Ortho was explained and I also left a message for son via [employer] with name and contact info on discharge instructions. His physical exam was unremarkable and he was sent to SNF is stable condition for several weeks of rehab. Total time spent on discharge = 60 minutes This includes examination of the patient, discharge planning, medication reconciliation, and communication with other providers. Discharge Instructions Discharge Instructions Date of Service November 09, 2016. Admission Reason for Admission: Hip Fracture, Left Discharge Discharge Diagnosis / Problem: Left non-displaced acetabular fracture Discharge Goals Goal(s): Decrease discomfort Activity Recommendations Activity Limitations: per Instructions/Follow-up section . Instructions / Follow-Up Instructions / Follow-Up Please continue all medications as directed including coumadin. Orthopedic instructions: Remain non-weight bearing for 2-4 weeks, then advance to toe touch weightbearing. Will need xrays every 2 weeks for the first 4-6 weeks, the every 6 weeks after that until fracture is completely healed. Please contact Dr. Dale Austin's office (Orthopedics) to set up follow-up appointment. I recommend a follow-up with your primary care physician within one week of discharge from the rehab facility as a follow-up from this hospitalization. It was a pleasure taking care of you! Call if you have any questions or problems. You can reach a [facility] hospitalist on duty at [facility] 24 hours a day by calling [phone]. Take care of yourself. Chika Shultz, [facility] Hospitalist Additional Copies To Markel Austin M.D.; Edy Cabrera MD
[2016-11-09 15:47] VITALS: BP 135/71; PULSE 64; TEMP 36.3; O2SAT 98
[2016-11-09] MEDS ORDERED: WARFARIN SOD 5 MG TAB PO SCH (16:00)
== END 2016-11-09 17:05 | DRG 536 ==
LOC: ENRESERVTM → ENRESERVDT → EDBD 13:04 → C.EDA 13:05 → C.MSN 17:43
PROVIDERS: ADMIT Hospitalist; ATTEND Hospitalist
DX: S32.402A Unspecified fracture of left acetabulum, initial encounter for closed fracture (principal); M80.88XA Other osteoporosis with current pathological fracture, vertebra(e), initial encounter for fracture; I48.2 Chronic atrial fibrillation; F03.90 Unspecified dementia, unspecified severity, without behavioral disturbance, psychotic disturbance, mood disturbance, and anxiety; I25.10 Atherosclerotic heart disease of native coronary artery without angina pectoris; I12.9 Hypertensive chronic kidney disease with stage 1 through stage 4 chronic kidney disease, or unspecified chronic kidney disease; G47.33 Obstructive sleep apnea (adult) (pediatric); N18.3 Chronic kidney disease, stage 3 (moderate); W19.XXXA Unspecified fall, initial encounter; Z79.01 Long term (current) use of anticoagulants; Z95.0 Presence of cardiac pacemaker; Z79.82 Long term (current) use of aspirin

== ENCOUNTER → 2017-04-03 | Outpatient (CLI) | payer BC, OTHER ==
[~2017-04-03] MED LIST changes: +RXC5 PO; -ZOLE5INJ IV
== END | disposition home or self-care (01) ==
LOC: C.MAMM 10:30
PROVIDERS: ATTEND Internal Medicine
DX: M80.80XA Other osteoporosis with current pathological fracture, unspecified site, initial encounter for fracture (principal)

== ENCOUNTER → 2017-04-05 | Outpatient (CLI) | payer BC, OTHER ==
--- NOTE | 2017-04-05 12:39 | DIAGNOSTIC IMAGING REPORT ---
HEAD CT NONCONTRAST CT DOSE: 776.86 mGycm HISTORY: MEMORY LOSS TECHNIQUE: Multiaxial CT images of the head were performed without the use of intravenous contrast. Automated exposure control was utilized for this study. A dose lowering technique was utilized adhering to the principles of ALARA. Comparison: Head CT 12/04/2014. Findings: The paranasal sinuses and mastoid air cells are clear. The calvarium and skull base are intact. There is no hematoma, midline shift, acute infarct. White matter hypodensity is nonspecific but suggestive of microvascular ischemic change. The ventricles and sulci demonstrate mild age-related involutional changes. 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 Impression: No significant change compared to the prior study. No acute intracranial abnormality. Electronically signed by: Sacha Josue M.D. 04/05/2017 12:38 PM Dictated Date/Time: 04/05/2017 12:33 PM
== END | disposition home or self-care (01) ==
LOC: C.CTS 12:17
PROVIDERS: ATTEND Internal Medicine
DX: R41.3 Other amnesia (principal)

== ENCOUNTER 2017-04-24 13:15 | Emergency (ER) | payer BC, OTHER ==
[~2017-04-24] VITALS: Ht 177.8 cm; Wt 65.9 kg
[2017-04-24 13:22] VITALS: TEMP 36.9; Ht 177.8 cm; Wt 65.9 kg
[2017-04-24] MEDS ORDERED: CHOL1000 PO (13:59)
[2017-04-24] MEDS ORDERED: ACET-749 PO (13:59)
[2017-04-24] MEDS ORDERED: POLY335019 PO (13:59)
[2017-04-24 14:12] LABS: INR 1.9 (0.9-1.1); PROTHROMBIN TIME (PATIENT) 20.7 SECONDS (9.0-12.0)
[2017-04-24 14:20] LABS: BASO % 0.2 %; BASO ABS # 0.01 K/uL (0-0.2); COMPLETE YES; EOS % 1.6 %; HEMATOCRIT 38.4 % (42-52); IG% 0.2 %; LYMPH % 16.6 %; LYMPH ABS # 0.92 K/uL (1.2-3.4); MEAN CORPUSCULAR HEMOGLOBIN 31.3 pg (25-34); MEAN CORPUSCULAR HGB CONC 34.4 g/dl (32-36); MEAN PLATELET VOLUME 10.9 fL (7.4-10.4); MONO % 14.3 %; NEUT % 67.1 %; PLATELET COUNT 183 K/uL (130-400); RED BLOOD COUNT 4.22 M/uL (4.7-6.1); WHITE BLOOD COUNT 5.53 K/uL (4.8-10.8)
[2017-04-24 15:40] VITALS: BP 150/78; PULSE 75; O2SAT 97
--- NOTE | 2017-04-24 18:44 | EMERGENCY ROOM VISIT NOTE ---
History Report prepared by Donal: Tashi Bee Under the Supervision of: Dr. Karlo Heaton D.O. First contact with patient: 13:32 Chief Complaint: BLEEDING Stated Complaint: PULLED OUT STITHCES,UNCONTROLLED BLEEDING Nursing Triage Summary: triage note; pt from [facility]. [facility] staff member present with pt reports pt had left lower tooth extracted last monday. since 1200 staff noticed bleeding from extraction site. staff report pt is on coumadin. History of Present Illness The patient is a 89 year old male who presents to the Emergency Room with complaints of uncontrolled bleeding that began 1.5 hours ago. He had a tooth extracted 5 days ago with stitches placed. He is currently on Coumadin. The patient is from [facility], and since this time staff noticed that he was bleeding from his incision site. They tried to call his Dentist, but they did not answer the phone. The patient denies any other symptoms at this time including chest pain, shortness breath, headache, change in vision, nausea, vomiting or diarrhea. Source of History: patient, shelter notes Onset: 1.5 hours ago Position: teeth Symptom Intensity: moderate Quality: other (Bleeding) Timing: constant Note: He denies any other abnormal symptoms. Review of Systems See HPI for pertinent positives & negatives. A total of 10 systems reviewed and were otherwise negative. 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 (12) BARB (obstructive sleep apnea) (13) Osteoporosis (14) SSS (sick sinus syndrome) Family History FH: arthritis FH: heart disease Social History Smoking Status: Never Smoker Alcohol Use: occasionally Drug Use: none Marital Status: Housing Status: lives with family Occupation Status: retired Current/Historical Medications Scheduled Aspirin (Aspirin Ec), 81 MG PO DAILY Atorvastatin (Lipitor), 20 MG PO DAILY Bimatoprost (Lumigan), 1 DROP OPL DAILY Brimonidine Tartrate (Alphagan P Oph), 1 DROP OPB HS Calcium Carbonate-Vitamin D (Calcium 600 + D), 1 TABLET PO BID Cholecalciferol (Vitamin D3), 1,000 UNITS PO DAILY Dronedarone Hcl (Multaq), 400 MG PO BID Polyethylene Glycol 3350 (Miralax), 17 GM PO UD Warfarin Sod (Jantoven), 2.5 MG PO [id number] Warfarin Sodium (Coumadin), 5 MG PO WK Scheduled PRN Acetaminophen/Codeine (Tylenol W/Codeine #3), 1-2 TABS PO Q4 PRN for Pain Allergies Coded Allergies: Quinolones (Verified Allergy, Unknown, PER MD, 04/24/17) Sulfamethoxazole (Verified Allergy, Unknown, 04/24/17) Tetracyclines (Verified Allergy, Unknown, 04/24/17) Physical Exam Vital Signs Date Time Temp Pulse Resp B/P (MAP) Pulse Ox O2 Delivery O2 Flow Rate FiO2 04/24/17 15:40 75 20 150/78 97 04/24/17 13:22 36.9 63 18 145/78 97 Room Air Physical Exam GENERAL: Sitting up in bed, alert, well appearing, well nourished, no distress, non-toxic, hard of hearing EYE EXAM: normal conjunctiva. OROPHARYNX: Bleeding from dental extraction site of left lower incisor with mild venous oozing, no exudate, no erythema, lips, buccal mucosa, and tongue normal and mucous membranes are moist NECK: supple, no nuchal rigidity, no adenopathy, non-tender LUNGS: Clear to auscultation. Normal chest wall mechanics HEART: no murmurs, S1 normal and S2 normal ABDOMEN: abdomen soft, non-tender, normo-active bowel sounds, no masses, no rebound or guarding. SKIN: no rashes and no bruising UPPER EXTREMITIES: upper extremities are grossly normal. LOWER EXTREMITIES: No pitting edema. NEURO EXAM: Normal sensorium. Medical Decision & Procedures Laboratory Results 04/24/17 13:50 Red Blood Count 4.22, Mean Corpuscular Volume 91.0, Mean Corpuscular Hemoglobin 31.3, Mean Corpuscular Hemoglobin Concent 34.4, Mean Platelet Volume 10.9, Neutrophils (%) (Auto) 67.1, Lymphocytes (%) (Auto) 16.6, Monocytes (%) (Auto) 14.3, Eosinophils (%) (Auto) 1.6, Basophils (%) (Auto) 0.2, Neutrophils # (Auto ) 3.71, Lymphocytes # (Auto) 0.92, Monocytes # (Auto) 0.79, Eosinophils # (Auto ) 0.09, Basophils # (Auto) 0.01 Test 04/24/17 13:50 White Blood Count 5.53 K/uL (4.8-10.8) Red Blood Count 4.22 M/uL (4.7-6.1) Hemoglobin 13.2 g/dL (14.0-18.0) Hematocrit 38.4 % (42-52) Mean Corpuscular Volume 91.0 fL (80-100) Mean Corpuscular Hemoglobin 31.3 pg (25-34) Mean Corpuscular Hemoglobin Concent 34.4 g/dl (32-36) Platelet Count 183 K/uL (130-400) Mean Platelet Volume 10.9 fL (7.4-10.4) Neutrophils (%) (Auto) 67.1 % Lymphocytes (%) (Auto) 16.6 % Monocytes (%) (Auto) 14.3 % Eosinophils (%) (Auto) 1.6 % Basophils (%) (Auto) 0.2 % Neutrophils # (Auto) 3.71 K/uL (1.4-6.5) Lymphocytes # (Auto) 0.92 K/uL (1.2-3.4) Monocytes # (Auto) 0.79 K/uL (0.11-0.59) Eosinophils # (Auto) 0.09 K/uL (0-0.5) Basophils # (Auto) 0.01 K/uL (0-0.2) RDW Standard Deviation 46.8 fL (36.4-46.3) RDW Coefficient of Variation 14.1 % (11.5-14.5) Immature Granulocyte % (Auto) 0.2 % Immature Granulocyte # (Auto) 0.01 K/uL (0.00-0.02) Prothrombin Time 20.7 SECONDS (9.0-12.0) Prothromb Time International Ratio 1.9 (0.9-1.1) Laboratory results per my review. ED Course ED COURSE: Vital signs were reviewed and showed hypertension. The patients medical record was reviewed The above diagnostic studies were performed and reviewed. ED treatments and interventions as stated above. 1332: The patient was evaluated in room A12. A complete history and physical examination was performed. 1420: The patient is now chewing on the Surgicel. 1600: Upon reevaluation, the patient is resting. I discussed my findings with the patient and he understands and agrees with the treatment plan. Based on the patients age, coexisting illnesses, exam and lab findings the decision to treat as an outpatient was made. The patient remained stable while under my care. The patient appeared well at the time of discharge. Medical Decision Patient is an 89-year-old male with a recent dental extraction who presents to ER with venous oozing from the site on Coumadin. Patient is no other complaints. Surgifoam was held over with pressure for 20 minutes. Bleeding stopped. CBC shows a mild anemia. INR was slightly subtherapeutic at 1.9. Patient was updated bedside. He was discharged follow-up with OMFS. Discussed with Pt concerning signs and symptoms to watch out for. Pt was instructed to follow up with their PCP and discussed with the patient their option to return to the ED at anytime for persistent or worsening symptoms. The appropriate anticipatory guidance and out-patient management, including indications for return to the emergency department, were explained at length to the patient and understood. Medication Reconcilliation Current Medication List: was personally reviewed by me Blood Pressure Screening Patient's blood pressure: Elevated blood pressure Blood pressure disposition: Elevated BP felt to be situational Impression Primary Impression: Surgical wound hemorrhage after dental procedure Additional Impression: Anticoagulated on Coumadin Scribe Attestation The scribe's documentation has been prepared under my direction and personally reviewed by me in its entirety. I confirm that the note above accurately reflects all work, treatment, procedures, and medical decision making performed by me. Departure Information Dispostion Home / Self-Care Referrals Edy Cabrera MD (PCP) Forms HOME CARE DOCUMENTATION FORM, IMPORTANT VISIT INFORMATION Patient Instructions ED Wound Check Post Op Bleeding, My [facility] Additional Instructions Please follow up with your oral surgeon with in the next 24 hours. Any worsening of your symptoms, please return to the ED immediately. This includes any fevers greater than 100.4, worsening pain, chest pain, shortness breath, persistent nausea, vomiting, unable to eat or drink, or any other concerning signs or symptoms from your standpoint. His INR was 1.9. If this starts to bleed again please hold pressure for 15 minutes and reevaluate. If he continues to bleed please call the oral surgeon or return to the ER. Problem Qualifiers
== END 2017-04-24 16:32 | disposition home or self-care (01) ==
LOC: C.EDB 13:15 → C.EDA 16:32
DX: K91.840 Postprocedural hemorrhage of a digestive system organ or structure following a digestive system procedure (principal); Z79.01 Long term (current) use of anticoagulants; I48.91 Unspecified atrial fibrillation; I25.10 Atherosclerotic heart disease of native coronary artery without angina pectoris; F03.90 Unspecified dementia, unspecified severity, without behavioral disturbance, psychotic disturbance, mood disturbance, and anxiety; Z95.0 Presence of cardiac pacemaker; I10 Essential (primary) hypertension; M48.061 Spinal stenosis, lumbar region without neurogenic claudication; G47.33 Obstructive sleep apnea (adult) (pediatric); M81.0 Age-related osteoporosis without current pathological fracture; I49.5 Sick sinus syndrome; Z82.49 Family history of ischemic heart disease and other diseases of the circulatory system; Z79.82 Long term (current) use of aspirin; Z79.899 Other long term (current) drug therapy